=== PATIENT | male | born 1930 | race Caucasian/White ===

== ENCOUNTER 2021-06-30 14:18 | Emergency (ER) | payer MEDICARE, OTHER ==
[2021-06-30] MEDS ORDERED: DOXYCYCLINE HY100 M2 PO (15:42)
== END 2021-06-30 16:00 | disposition home or self-care (01) ==
LOC: FER 14:18
DX: S81.811A Laceration without foreign body, right lower leg, initial encounter (principal); B49 Unspecified mycosis; Z23 Encounter for immunization; I25.10 Atherosclerotic heart disease of native coronary artery without angina pectoris; Z95.1 Presence of aortocoronary bypass graft; W01.10XA Fall on same level from slipping, tripping and stumbling with subsequent striking against unspecified object, initial encounter; Y92.009 Unspecified place in unspecified non-institutional (private) residence as the place of occurrence of the external cause
CPT/HCPCS: 73590; 90471; 90715